=== PATIENT | female | born 1975 | race Caucasian/White ===

== ENCOUNTER 2018-05-11 08:51 | Day surgery (SDC) | payer MEDICAID ==
[~2018-05-11 08:51] MED LIST: SOD CHLORIDE 0.9% 1,000 ML IV
[2018-05-11] MEDS: BUPIVACAINE 0.5% (SDV) 30 ML INJ (09:50)
[2018-05-11 09:51] LABS: ADD MAN DIFF? NO
[2018-05-11 09:53] LABS: BASOPHIL # 0.1 10^3/ul (0.0-0.1); BASOPHILS % 1.3 % (0.0-2.0); EOSINOPHILS # 0.5 10^3/ul (0.0-0.5); EOSINOPHILS % 6.5 % (0.0-7.0); HEMATOCRIT 37.4 % (37.0-47.0); HEMOGLOBIN 12.4 g/dl (12.0-16.0); LYMPHOCYTES # 1.5 10^3/ul (0.8-2.9); LYMPHOCYTES % 19.5 % (15.0-51.0); MEAN CORPUSCULAR HEMOGLOBIN 28.9 pg (29.0-33.0); MEAN CORPUSCULAR HGB CONC 33.2 g/dl (32.0-37.0); MEAN CORPUSCULAR VOLUME 87.2 fl (82.0-101.0); MEAN PLATELET VOLUME 10.1 fl (7.4-10.4); MONOCYTE # 0.5 10^3/ul (0.3-0.9); MONOCYTES % 5.9 % (0.0-11.0); NEUTROPHIL # 5.2 10^3/ul (1.6-7.5); NEUTROPHILS % 66.4 % (39.0-77.0); PLATELET COUNT 305 10^3/UL (140-415); RED BLOOD COUNT 4.29 10^6/ul (4.20-5.40); RED CELL DISTRIBUTION WIDTH 12.4 % (11.5-14.5)
[2018-05-11 09:53] LABS: WHITE BLOOD COUNT 7.8 10^3/ul (4.8-10.8)
[2018-05-11] MEDS ORDERED: MIDAZOLAM 1 MG/ML 2 ML INJ (10:13)
[2018-05-11] MEDS ORDERED: LIDOCAINE 2% (SDV) 5 ML INJ (10:13)
[2018-05-11] MEDS ORDERED: PROPOFOL 20 ML (10:13)
[2018-05-11 10:17] LABS: ALANINE AMINOTRANSFERASE 76 IU/L (13-69); ALBUMIN 4.6 g/dl (3.3-4.9); ALBUMIN/GLOBULIN RATIO 1.27; ALKALINE PHOSPHATASE 142 IU/L (42-121); ANION GAP 13 (5-13); ASPARTATE AMINO TRANSFERASE 51 IU/L (15-46); BILIRUBIN,INDIRECT 0.4 mg/dl (0-1.1); BILIRUBIN,TOTAL 0.4 mg/dl (0.2-1.3); BLOOD UREA NITROGEN 12 mg/dl (7-20); CALCIUM 9.5 mg/dl (8.4-10.2); CARBON DIOXIDE 27 mmol/L (21-31); CHLORIDE 101 mmol/L (97-110); CREATININE 0.58 mg/dl (0.44-1.00); Estimated GFR > 60 mL/min (>60); GLUCOSE 103 mg/dl (70-220); POTASSIUM 4.2 mmol/L (3.5-5.1); SODIUM 141 mmol/L (135-144); TOTAL PROTEIN 8.2 g/dl (6.1-8.1)
[2018-05-11] MEDS ORDERED: CEFAZOLIN 1 GM INJ (10:20)
[2018-05-11] MEDS: CEFAZOLIN 1 GM/50 ML (PMX) 50 ML IVPB (10:20)
[2018-05-11] MEDS ORDERED: ONDANSETRON 4 MG INJ (10:22)
[2018-05-11] MEDS ORDERED: FENTAnyl 50 MCG/ML VIAL (10:22)
[2018-05-11] MEDS ORDERED: DEXAMETHASONE 4 MG/ML 5 ML INJ (10:22)
[2018-05-11] MEDS ORDERED: FAMOTIDINE 20 MG INJ (10:23)
[2018-05-11] MEDS ORDERED: DIPHENHYDRAMINE 50 MG INJ IV (10:30)
[2018-05-11] MEDS ORDERED: ONDANSETRON 4 MG INJ IV (10:30)
[2018-05-11] MEDS ORDERED: HYDROmorphONE 1 MG/5 ML IV SYRINGE IV (10:30)
[2018-05-11] MEDS ORDERED: MEPERIDINE 25 MG INJ IV (10:30)
[2018-05-11] MEDS ORDERED: FENTAnyl 50 MCG/ML VIAL IV (10:30)
[2018-05-11] MEDS ORDERED: KETOROLAC 30 MG INJ (11:01)
[2018-05-11] MEDS ORDERED: EPHEDrine SULFATE 50 MG/5 ML SYG IV (11:30)
[2018-05-11] MEDS: OXYCODONE/ACETAMINOPHEN (5/325) TAB PO (12:14)
== END 2018-05-11 12:55 | disposition home or self-care (01) ==
LOC: SDS 08:51
DX: D24.2 Benign neoplasm of left breast (principal)
CPT/HCPCS: 19120; 80053; 85025; 88307; 88341; 88342